=== PATIENT | male | born 1955 | race Caucasian/White ===

== ENCOUNTER 2017-05-15 20:32 | Inpatient (IN) | payer OTHER ==
--- NOTE | 2017-05-15 20:55 | EDPHY ---
H & P Time Seen by Provider: 05/15/17 20:51 HPI/ROS: CHIEF COMPLAINT: Right ankle fracture dislocation HISTORY OF PRESENT ILLNESS: 61-year-old male presents with a right ankle fracture dislocation. This evening he was running while intoxicated, tripped on a rock and fell. Immediate onset of severe pain and deformity in his right ankle. He was seen at a free-standing emergency department in [place] where he was diagnosed with a right ankle fracture dislocation. The dislocation was reduced and he was placed in a splint. Dr. Archer was consulted and the patient was sent to this emergency department for admission. The pain is mild to moderate and he denies numbness or weakness. He denies any additional injuries. He does admit to drinking a beer while en route to the hospital. Medical history includes coronary artery disease and two prior CVAs. REVIEW OF SYSTEMS: Constitutional: No weakness Eyes: No visual changes or eye pain ENT: No dental trauma Neck: No pain or injury Respiratory: No shortness of breath Cardiac: No chest pain Gastrointestinal: No abdominal pain, no vomiting Back: No pain or injury Genitourinary: No hematuria Musculoskeletal: +right ankle injury Skin: +right arm abrasion Neurological: No headache, no dizziness Past Medical/Surgical History: CAD with stenting, 3 prior MIs, CABG. Two prior CVAs. Social History: Smokes regularly. Drinks alcohol socially. . Smoking Status: Heavy smoker Physical Exam: General Appearance: Alert, talkative Head: Atraumatic Eyes: No conjunctival erythema, PERRLA, EOMI ENT, Mouth: No hemotympanum, no oral trauma, no bony tenderness Neck: Non-tender, full range of motion without pain Respiratory: No chest wall tenderness, lungs clear bilaterally Cardiovascular: Regular rate and rhythm Abdomen: Abdomen is soft and non tender Skin: No lacerations, superficial abrasion to the right forearm Back: No midline T/L/S tenderness Extremities: Right lower extremity-there is a posterior splint in place. Able to move all toes. Normal capillary refills of the toes. Neurological: A&Ox3, normal motor function, normal sensory exam, cranial nerves intact Psychiatric: Mood and affect normal Constitutional: Initial Vital Signs Temperature (C) 36.8 C 05/15/17 20:33 Heart Rate 80 05/15/17 20:33 Respiratory Rate 20 05/15/17 20:33 Blood Pressure 107/67 05/15/17 20:33 O2 Sat (%) 94 05/15/17 20:33 O2 Delivery Mode Room Air Allergies/Adverse Reactions: No Known Allergies Allergy (Verified 05/15/17 21:34) Home Medications: Medication Instructions Recorded Albuterol [Ventolin Hfa Inhaler] 2 puffs IH Q4H PRN 05/15/17 Aspirin [Aspirin 325 mg (*)] 325 mg PO HS 05/15/17 Budesonide/Formoterol 160/4.5 2 puffs IH BID 05/15/17 [Symbicort 160-4.5 Mcg Inh (*)] Irbesartan [Avapro 150 mg (*)] 150 mg PO DAILY 05/15/17 Metoprolol Succinate Xr [Toprol Xl 25 mg PO DAILY 05/15/17 50 mg (*)] Nitroglycerin [Nitrostat 0.4 mg 0.4 mg SL Q5M PRN 05/15/17 (*)] Medical Decision Making - Diagnostics Imaging Results: Imaging Impressions Chest X-Ray 05/15/17 21:21 Impression: No acute abnormality. Imaging: I viewed and interpreted images myself ED Course/Re-evaluation: 61-year-old male presents with right ankle dislocation and [facility] He has no additional significant injuries. He was evaluated at an urgent care clinic in [place] and brings x-ray discs with him. EKG, chest x-ray, and labs ordered in preparation for surgical admission. Plan for consultation with orthopedist. The patient was reminded to remain NPO throughout his emergency department stay. 2118: Dr. Archer, orthopedic surgeon, at bedside. CT scan of the right ankle ordered by Dr. Archer. 2119: Consultation with Dr. Sanford, hospitalist, who accepts admission. Differential Diagnosis: Differential diagnosis includes though it is not limited to open fracture, neurovascular compromise, intracranial hemorrhage, pneumothorax, hemothorax, intra-abdominal hemorrhage. - Data Points Laboratory Results: Laboratory Results 05/15/17 21:00 05/15/17 21:00 05/15/17 05/15/17 21:00 21:00 WBC 13.19 10^3/uL H 10^3/uL (3.80-9.50) RBC 4.93 10^6/uL 10^6/uL (4.40-6.38) Hgb 16.6 g/dL g/dL (13.7-17.5) Hct 48.2 % % (40.0-51.0) MCV 97.8 fL fL (81.5-99.8) MCH 33.7 pg pg (27.9-34.1) MCHC 34.4 g/dL g/dL (32.4-36.7) RDW 13.0 % % (11.5-15.2) Plt Count 227 10^3/uL 10^3/uL (150-400) MPV 10.6 fL fL (8.7-11.7) Neut % (Auto) 83.7 % H % (39.3-74.2) Lymph % (Auto) 9.3 % L % (15.0-45.0) Dukes % (Auto) 5.4 % % (4.5-13.0) Eos % (Auto) 0.8 % % (0.6-7.6) Baso % (Auto) 0.4 % % (0.3-1.7) Nucleat RBC Rel Count 0.0 % % (0.0-0.2) Absolute Neuts (auto) 11.05 10^3/uL H 10^3/uL (1.70-6.50) Absolute Lymphs (auto) 1.23 10^3/uL 10^3/uL (1.00-3.00) Absolute Monos (auto) 0.71 10^3/uL 10^3/uL (0.30-0.80) Absolute Eos (auto) 0.10 10^3/uL 10^3/uL (0.03-0.40) Absolute Basos (auto) 0.05 10^3/uL 10^3/uL (0.02-0.10) Absolute Nucleated RBC 0.00 10^3/uL 10^3/uL (0-0.01) Immature Gran % 0.4 % % (0.0-1.1) Immature Gran # 0.05 10^3/uL 10^3/uL (0.00-0.10) Sodium 135 mEq/L mEq/L (134-144) Potassium 4.1 mEq/L mEq/L (3.5-5.2) Chloride 101 mEq/L mEq/L (97-110) Carbon Dioxide 20 mEq/l L mEq/l (22-31) Anion Gap 14 mEq/L mEq/L (8-16) BUN 16 mg/dL mg/dL (7-23) Creatinine 1.1 mg/dL mg/dL (0.7-1.3) Estimated GFR > 60 Glucose 82 mg/dL mg/dL (70-100) Calcium 9.2 mg/dL mg/dL (8.5-10.4) Ethyl Alcohol 88 mg/dL H mg/dL (0-10) Medications Given: Discontinued Medications Hydromorphone HCl (Dilaudid) 0.2 - 0.4 mg IVP Q4HRS PRN PRN Reason: Pain, Severe Unable to Take PO Stop: 05/25/17 21:39 Last Admin: 05/16/17 05:51 Dose: 0.4 mg Departure - Departure Disposition: [facility] Inpatient Acute Clinical Impression: Fracture dislocation of ankle Qualifiers: Encounter type: initial encounter Fracture type: closed Laterality: right Qualified Code(s): S82.891A - Other fracture of right lower leg, initial encounter for closed fracture Condition: Fair Report Scribed for: Shellie Piedra Report Scribed by: Devika Barrios Date of Report: 05/15/17 Time of Report: 20:53 Physician Review and Approval Statement: 05/15/17 20:53 Portions of this note were transcribed by a medical social worker. I personally performed a history, physical exam, medical decision making, and confirmed accuracy of information the transcribed note.
[2017-05-15 21:37] LABS: % IMMATURE GRANULYOCYTES 0.4 % (0.0-1.1); ABSOLUTE IMMATURE GRANULOCYTES 0.05 10^3/uL (0.00-0.10); ADD DIFF? NO; ADD MORPH? NO; ADD SCAN? NO; ATYPICAL LYMPHOCYTE FLAG 0 (0-99); FRAGMENT RBC FLAG 0 (0-99); HEMATOCRIT 48.2 % (40.0-51.0); HEMOGLOBIN 16.6 g/dL (13.7-17.5); LEFT SHIFT FLG 0 (0-99); LIPEMIA HEMOLYSIS FLAG 90 (0-99); MEAN CELL HEMOGLOBIN 33.7 pg (27.9-34.1); MEAN CELL HEMOGLOBIN CONCENTR. 34.4 g/dL (32.4-36.7); MEAN CELL VOLUME 97.8 fL (81.5-99.8); MEAN PLATELET VOLUME 10.6 fL (8.7-11.7); PLATELET CLUMPS FLAG 0 (0-99); PLATELET COUNT 227 10^3/uL (150-400); RED BLOOD CELL COUNT 4.93 10^6/uL (4.40-6.38)
[2017-05-15] MEDS ORDERED: ONDANSETRON 4 MG/2 ML VIAL IVP PRN (21:40)
[2017-05-15] MEDS ORDERED: PROMETHAZINE HCL 25 MG/ML INJ IVP PRN (21:40)
[2017-05-15] MEDS ORDERED: ALBUTEROL 3 ML DEYVIAL IH PRN (21:40)
[2017-05-15] MEDS ORDERED: ACETAMINOPHEN 325 MG TAB PO PRN (21:40)
[2017-05-15] MEDS ORDERED: NICOTINE POLACRILEX 2 MG GUM B PRN (21:40)
[2017-05-15] MEDS ORDERED: ONDANSETRON DISINTEGRATING 4 MG TAB PO PRN (21:40)
[2017-05-15] MEDS ORDERED: ALBUTEROL 200 PUFFS/18 GM MDI IH PRN (21:42)
[2017-05-15 21:43] LABS: ANION GAP 14 mEq/L (8-16); CALCIUM 9.2 mg/dL (8.5-10.4); CARBON DIOXIDE 20 mEq/l (22-31); CHLORIDE 101 mEq/L (97-110); CREATININE 1.1 mg/dL (0.7-1.3); ETHANOL SERUM 88 mg/dL (0-10); GLOMERULAR FILTRATION RATE > 60; GLUCOSE 82 mg/dL (70-100); POTASSIUM 4.1 mEq/L (3.5-5.2); SODIUM 135 mEq/L (134-144)
--- NOTE | 2017-05-15 22:18 | GCON ---
[f rep st] CONSULTATION DATE OF CONSULTATION: 05/15/2017 CHIEF COMPLAINT: Right ankle fracture dislocation. HISTORY OF PRESENT ILLNESS: A 61-year-old male, who was drinking and hanging out with friends, took a misstep and fell and fractured his ankle. He was seen at [facility] emergency room wh ere his dislocation was reduced but he still had significant widening. I was contacted and elected to take care of the patient orthopedically. He was transferred to [facility]. He complains only of right ankle pain. Denies other injuries. PAST MEDICAL HISTORY: Coronary artery disease with 3 MIs, prior CABG, 2 stents, 2 prior CVAs. SURGICAL HISTORY: Hip replacements. SOCIAL HISTORY: Smokes regularly, drinks regularly, uses marijuana. ALLERGIES: No known drug allergies. MEDICATIONS: Please see inpatient medication list. FAMILY HISTORY: Noncontributory. REVIEW OF SYSTEMS: Full Review of Systems is performed, is otherwise negative other than above. PHYSICAL EXAM: GENERAL: He is alert, oriented, and appropriate. Does not appear in any acute dist ress. He does not appear intoxicated at this time. HEENT: His head is atraumatic, normocephalic. His eyes are equal. His mouth has moist mucous membranes. NECK: Supple. CHEST: Symmetric chest rise. CARDIAC: Regular rate and rhythm. ABDOMEN: Soft. EXTREMITIES: His right lower extremity is in a splint. He can flex and extend his toes. His knee and hip are nonpainful. His left lower extremity shows good range of motion, no pain. His bilateral upper extremities show good range of motion. Full strength, no pain. X-rays showed an ankle fracture with incomplete reduction, medial subluxation. ASSESSMENT: Right ankle fracture with significant displacement. PLAN: He was being admitted and evaluated by the hospitalist service. I counseled him on the risks and benefits of an ORIF of this given his widening, and will perform this tomorrow if he is able to be cleared medically. I will get a CT scan to further characterize the fracture given the dislocat ion. It is in a splint, he will elevate and ice this. He will remain n.p.o. We discussed risks an d benefits of operative intervention including nonunion, malunion, nerve injury, infection, continue d pain, and he elected to proceed. Informed consent obtained. All questions were answered. /[id number]/MODL
--- NOTE | 2017-05-15 22:23 | GHP ---
[f rep st] HISTORY AND PHYSICAL DATE OF ADMISSION: 05/15/2017 CHIEF COMPLAINT: Right ankle pain. HISTORY: This is a 61-year-old man with past medical history of coronary artery disease, as well as COPD, who presents after a mechanical fall with acute right ankle pain. The patient notes that he was "chasing women and drinking" when he slipped and fell on a rock. He had some abrasions to his r ight elbow and also significant pain to his right ankle. He otherwise denies any complaints and sta bernardino that up until he fell, he was in his usual state of health and feeling quite well. He has not h ad chest pain in many, many years. He does drink heavily on the weekends and notes that he was drin navarro 5 cans of beer earlier in the day and then had another beer on his way over to the hospital. Manav wheatley denies ever having issues with withdrawal. PAST MEDICAL HISTORY: 1. Coronary artery disease, status post RI x3, status post stents and CABG. 2. COPD relatively noncompliant with medications. 3. History of 2 CVAs. SURGICAL HISTORY: CABG and bilateral total hip arthroplasty. FAMILY HISTORY: This was reviewed and noncontributory. SOCIAL HISTORY: The patient lives independently. He drinks alcohol heavily on the weekends but sta bernardino he does not drink during the week. He smokes 1 pack per day and has approximately a 40-pack-yea r smoking history. He is . REVIEW OF SYSTEMS: 10-point review of systems obtained negative except as per HPI. MEDICATIONS: 1. Irbesartan. 2. Nitroglycerin. 3. Symbicort. 4. Albuterol. 5. Metoprolol. 6. Aspirin. ALLERGIES: No known drug allergies. PHYSICAL EXAMINATION: VITAL SIGNS: BP 107/67, heart rate 80, respiratory rate 18, O2 sats 94% on r oom air. Temperature is 36.8. GENERAL APPEARANCE: This is a well-developed/well-nourished man. Manav wheatley is awake and alert. He is in no acute distress. EYES: Anicteric. HENT: Oropharynx clear. CARD IOVASCULAR: Regular rate and rhythm, no MRG. PULMONARY: Decreased breath sounds with scattered ex piratory wheeze. Normal work of breathing. ABDOMEN: Soft, nontender, nondistended. EXTREMITIES: Right lower extremity is in a dressing otherwise no clubbing, cyanosis, or edema. SKIN: Warm, dry, well perfused. NEURO/PSYCHIATRIC: Oriented, appropriate, pleasant. CLINICAL DATA: Labs reviewed. Significant for white blood cell count of 13.19. Chemistry is unrem arkable. Blood alcohol level of 88. Chest x-ray, personally reviewed and interpreted, shows no acute abnormalities. ASSESSMENT AND PLAN: This is a 61-year-old man past medical history of coronary artery disease and chronic obstructive pulmonary disease who presents with a right ankle fracture and dislocation. 1. Right ankle fracture/dislocation. These films are being loaded into our system though I have no t yet had a chance to personally review them. I did discuss the case with Dr. Archer who believes s urgical intervention will be required in the morning. He has ordered a CT of the lower extremity fo r further evaluation. He will be made n.p.o. after midnight. He is currently not in significant am ounts of pain but did require IV opiates in the emergency department for pain control. These will b e continued on an as-needed basis. 2. Coronary artery disease. Sounds as if his surgery and stenting have all been quite remote and manav wheatley has not had any angina or other cardiac symptoms since then. He is quite active and is a low card iac risk for an urgent surgical intervention. He will be continued on his usual medications other t soto aspirin which will be held for the time being. He is also on metoprolol and irbesartan. 3. Chronic obstructive pulmonary disease. Seems as if this is generally fairly poorly controlled b y this man. He states he does not like to take his inhalers as he feels that they are "addictive." He does have a mild expiratory wheeze and decreased breath sounds on exam. Will start scheduled Du oNeb and albuterol p.r.n. in anticipation of surgery in the morning. He is not hypoxic, however, an d does not have evidence of acute exacerbation at this point. 4. History of cerebrovascular accident. No residual symptoms. 5. Alcohol abuse. The patient has what sounds like binge drinking behaviors on the weekend. He henderson s had at least 6 or 7 beers this afternoon. He does not appear intoxicated and his blood alcohol le joceline is 88. He denies ever having withdrawal. Will monitor closely but will not start CIWA at this point. 6. Disposition: Inpatient status. Suspect he will need greater than 48 hours stay for evaluation and management of above. 7. The patient is new to my care. Old records reviewed, summarized as per HPI and past medical his tory. Care plan reviewed with Dr. Archer present at bedside. /[id number]/MODL
[2017-05-15] MEDS: NICOTINE 21 MG/24 HR PATCH TD SCH (22:49)
[2017-05-15] MEDS: NS 1,000 ML IV SCH (22:49)
[2017-05-15] MEDS: oxyCODONE IR 5 MG TAB PO PRN (23:00)
[2017-05-16] MEDS: HYDROmorphONE/DILAUDID 1 MG/ML SYR IVP PRN ×2 (02:56→05:51)
[2017-05-16] MEDS: oxyCODONE IR 5 MG TAB PO PRN ×3 (05:50→22:10)
[2017-05-16] MEDS: IPRATROPIUM/ALBUTEROL 3 ML DEYVIAL IH SCH ×4 (06:22→23:05)
[2017-05-16] MEDS ORDERED: BUPIVACAINE 0.5% 30 ML SDV ONE (07:50)
[2017-05-16] MEDS ORDERED: HYDROmorphONE/DILAUDID 1 MG/ML SYR IVP PRN ×2 (07:50→14:12)
[2017-05-16] MEDS: NICOTINE 21 MG/24 HR PATCH TD SCH (08:04)
[2017-05-16] MEDS: NS 1,000 ML IV SCH (08:15)
[2017-05-16] MEDS: IRBESARTAN 150 MG TAB PO SCH (08:17)
[2017-05-16] MEDS: BUDESONIDE/FORMOTEROL 160/4.5 60 PUFFS/MDI IH SCH ×2 (08:20→08:22)
[2017-05-16] MEDS: METOPROLOL SUCCINATE XR 25 MG TAB PO SCH (08:21)
[2017-05-16] MEDS ORDERED: ceFAZolin 2 GM/DEXTROSE 100 ML IV ONE (09:01)
--- NOTE | 2017-05-16 09:03 | SOAPPROG ---
PRAVEEN Progress Note Assessment/Plan: Assessment: R ankle fracture Plan: ORIF of right ankle and deltoid repair NPO informed consent obtained 05/16/17 09:02 Subjective: pain in ankle Objective: Vital Signs Temp Pulse Resp BP Pulse Ox 36.4 C 68 16 106/71 92 05/16/17 08:00 05/16/17 03:46 05/16/17 08:00 05/16/17 08:00 05/16/17 08:00 05/15/17 05/16/17 05/17/17 05:59 05:59 05:59 Intake Total 1690 0 Output Total 1700 525 Balance -10 -525 in splint ICD10 Worksheet Patient Problems: Problems Problem Status Onset Fracture dislocation of ankle Acute
[2017-05-16] MEDS ORDERED: HYDROmorphONE/DILAUDID 1 MG/ML SYR IVP ONE (10:33)
[2017-05-16] MEDS ORDERED: CEFAZOLIN 2 GM/DEXTROSE/100 ML BAG IV ONE (11:56)
--- NOTE | 2017-05-16 12:35 | PDANEPAE ---
ANE History of Present Illness 61 yo with fx R ankle ANE Past Medical History - Cardiovascular History Hx Hypertension: Yes Hx Coronary Artery / Peripheral Vascular Disease: Yes - Pulmonary History Hx COPD: Yes Hx Oxygen in Use at Home: No - Endocrine History Hx Diabetes: No ANE Review of Systems - Exercise capacity METS (RN): 4 METS - Systems Respiratory: Reports: no symptoms ANE Patient History - Allergies Allergies/Adverse Reactions: No Known Allergies Allergy (Verified 05/15/17 21:34) - Home Medications Home Medications: Albuterol [Ventolin Hfa Inhaler] 2 puffs IH Q4H PRN 05/15/17 [Last Taken Unknown ] Aspirin [Aspirin 325 mg (*)] 325 mg PO HS 05/15/17 [Last Taken 05/14/17] Budesonide/Formoterol 160/4.5 [Symbicort 160-4.5 Mcg Inh (*)] 2 puffs IH BID [Last Taken 04/15/17] Irbesartan [Avapro 150 mg (*)] 150 mg PO DAILY 05/15/17 [Last Taken 05/15/17] Metoprolol Succinate Xr [Toprol Xl 50 mg (*)] 25 mg PO DAILY 05/15/17 [Last Taken 05/15/17] Nitroglycerin [Nitrostat 0.4 mg (*)] 0.4 mg SL Q5M PRN 05/15/17 [Last Taken Unknown] - NPO status NPO Since - Liquids (Date): 05/15/17 NPO Since - Liquids (Time): 20:30 NPO Since - Solids (Date): 05/15/17 NPO Since - Solids (Time): 15:00 - Smoking Hx Smoking Status: Heavy smoker - Alcohol Use Alcohol Use: Heavy ANE Labs/Vital Signs - Labs Result Diagrams: 05/15/17 21:00 05/15/17 21:00 - Vital Signs Blood Pressure: 148/80 Heart Rate: 80 Respiratory Rate: 16 O2 Sat (%): 94 Height: 170.18 cm Weight: 79.37 kg ANE Physical Exam - Airway Neck exam: FROM Mallampati Score: Class 2 - Pulmonary Pulmonary: no respiratory distress, clear to auscultation - Cardiovascular Cardiovascular: regular rate and rhythym - ASA Status ASA Status: III ANE Anesthesia Plan Anesthesia Plan: general endotracheal anesthesia
[2017-05-16] MEDS ORDERED: MIDAZOLAM 2 MG/2 ML VIAL IVP ONE (12:36)
[2017-05-16] MEDS ORDERED: MIDAZOLAM 2 MG/2 ML VIAL ONE (12:38)
[2017-05-16] MEDS ORDERED: PROPOFOL 200 MG/20 ML VIAL ONE ×2 (13:09→14:19)
--- NOTE | 2017-05-16 13:17 | HOSPPROG ---
Hospitalist Progress Note Assessment/Plan: 61y male with fall and ankle pain. This is my first encounter, chart reviewed. #Ankle fx to OR today #Pain cont supportive meds #Hx CAD stable, no CP #COPD noncompliant cont nebs #Hx CVA stable #Hx ETOH binge drinking stable #Dispo unclear, to OR today PT/OT eval Subjective: Having some pain. No other issues. Objective: Vital Signs Temp Pulse Resp BP Pulse Ox 37.0 C 80 16 148/80 H 94 05/16/17 11:49 05/16/17 12:36 05/16/17 12:36 05/16/17 12:36 05/16/17 12:36 05/15/17 05/16/17 05/17/17 05:59 05:59 05:59 Intake Total 1690 0 Output Total 1700 875 Balance -10 -875 - Physical Exam Constitutional: no apparent distress, appears nourished, uncomfortable Eyes: PERRL, anicteric sclera, EOMI Ears, Nose, Mouth, Throat: moist mucous membranes, hearing normal, ears appear normal Cardiovascular: No JVD, No tachycardia, No edema Respiratory: no respiratory distress, reduced air movement, expiratory wheeze Gastrointestinal: No tenderness, No ascites, No guarding Skin: warm, normal color, No erythema Musculoskeletal: joint tenderness, pain with ROM, generalized weakness Neurologic: AAOx3 Psychiatric: interacting appropriately, not anxious, not encephalopathic, thought process linear ICD10 Worksheet Patient Problems: Problems Problem Status Onset Fracture dislocation of ankle Acute
[2017-05-16] MEDS ORDERED: PROMETHAZINE HCL 25 MG/ML INJ IVP PRN (14:12)
[2017-05-16] MEDS ORDERED: NALOXONE HCL 0.4 MG/ML INJ IVP PRN (14:12)
[2017-05-16] MEDS ORDERED: ONDANSETRON 4 MG/2 ML VIAL IVP PRN (14:12)
[2017-05-16] MEDS ORDERED: fentaNYL 100 MCG/2 ML INJ IVP PRN (14:12)
[2017-05-16] MEDS ORDERED: ALBUTEROL 3 ML DEYVIAL IH PRN (14:12)
--- NOTE | 2017-05-16 14:30 | POSTOPPROG ---
Post Op Note Date of Operation: 05/16/17 Surgeon: José Miguel Archer Out Patient Therapist: natalie Anesthesiologist: warm Anesthesia: GET(General Endotracheal) Pre-op Diagnosis: right ankle fx dislocation Post-op Diagnosis: same Indication: above Procedure: orif right ankle Inf/Abcess present in the surg proc area at time of surgery?: No EBL: Minimal
--- NOTE | 2017-05-16 14:39 | POSTANESTH ---
Post Anesthetic Evaluation Cardiovascular Status: Normal, Stable Respiratory Status: Normal, Stable Level of Consciousness/Mental Status: Can Participate in Eval, Mildly Sleepy, Arousable Pain Control: Adequate, Prn Tx Ordered Nausea/Vomiting Control: Adequate, Prn Tx Ordered Complications Possibly Related to Anesthesia: None Noted
--- NOTE | 2017-05-16 15:41 | GOP ---
[f rep st] OPERATIVE REPORT DATE OF OPERATION: 05/16/2017 SURGEON: José Miguel Archer MD [employer]: Endy Greene [employer]. ANESTHESIA: General with popliteal and saphenous block. PREOPERATIVE DIAGNOSIS: 1. Right lateral malleolar ankle fracture/dislocation. 2. Posterior malleolar fracture. 3. Deltoid injury. POSTOPERATIVE DIAGNOSIS: 1. Right lateral malleolar ankle fracture/dislocation. 2. Posterior malleolar fracture. 3. Deltoid injury. PROCEDURE PERFORMED: 1. Open reduction and internal fixation of right lateral malleolus fracture. 2. Open repair of right deltoid ligament. 3. Closed treatment with manipulation of posterior malleolus fragment. FINDINGS: SPECIMENS: None. CONDITION: Stable. ESTIMATED BLOOD LOSS: 5 mL. INDICATIONS: This is a male who has injured his ankle and had an ankle fracture/dislocation. This was reduced by an outside emergency room. However, there was still significant widening of the mort ise. He was transferred to [facility] and evaluated. He was taken to the operating room when he is medically cleared and stable due to the subluxation of the talus. We discussed risks and benefits of operative intervention, including nonunion, malunion, continued i nstability, need for syndesmotic fixation, need for deltoid repair, nerve injury, need for further s urgery, stiffness. He wished to proceed. Informed consent was obtained. All questions were obtain ed. DESCRIPTION OF PROCEDURE: He was marked preoperatively. He was taken to the operative suite. Anes thesia was induced. Blocks were administered per Anesthesia. He was given 2 g of Ancef. He was st erilely prepped and draped in the usual fashion. A time-out was performed verifying the site, side, and location. All were in agreement as a team. The procedure was begun with Esmarch and inflation of the tourniquet. I made an incision over the lateral fibula and dissected down to the fracture site, debriding this a nd protecting neurovascular structures. I then opened up the medial side of the ankle, protecting t he saphenous nerve and vein. He had significant gapping of the medial clear space and the posterior tibial tendon was stuck in this. I removed this out of the way posteriorly, debrided this area and then was able to reduce this. He had a complete tear of his deltoid ligament, partial avulsion, pa rtial midsubstance tear. I turned my attention back to the lateral side. I was able to reduce the bone with manual manipulat ion and hold this with clamps. I placed a lag screw in this, which was later removed, and K-wire. I placed a plate on this, brought this to the bone with a cortical screw, placed distal locking scre ws in the proximal and cortical screws to achieve good fixation. I removed all the instrumentation. His fracture appeared anatomically reduced. Hardware was in goo d position. His mortise was restored. He did not want a stress x-ray. I made the decision to repair the deltoid ligament, given the severe nature of this injury and rotat ional control issues. Additionally, his posterior malleolus fragment had reduced as well. I then p ut 3-0 Bio-SutureTak anchor in the medial malleolus and over sewed the deltoid to this. I repaired the midsubstance of the deltoid more posteriorly. The wounds were thoroughly irrigated and closed w ith 0 Vicryl, 2-0 Vicryl and 3-0 Monocryl, and Dermabond. He was placed in a sterile dressing and s plint. He was taken to the PACU in stable condition. COMPLICATIONS: None. DRAINS: None. /[id number]/MODL
[2017-05-16 22:46] VITALS: RESP 16
[2017-05-17] MEDS: oxyCODONE IR 5 MG TAB PO PRN (07:12)
--- NOTE | 2017-05-17 08:08 | SOAPPROG ---
PRAVEEN Progress Note Assessment/Plan: Assessment: R ankle fracture Plan: s/p ORIF of right ankle and deltoid repair nwb RLE stay in splint d/c from my standpoint they have my card to make f/u appt in 1.5 weeks Subjective: pain in ankle Objective: Vital Signs Temp Pulse Resp BP Pulse Ox 37.1 C 78 16 130/81 H 96 05/16/17 22:45 05/16/17 22:45 05/16/17 22:45 05/16/17 22:45 05/16/17 22:45 05/16/17 05/17/17 05/18/17 05:59 05:59 05:59 Intake Total 1690 3200 Output Total 1700 1841 Balance -10 725 moving toes ICD10 Worksheet Patient Problems: Problems Problem Status Onset Fracture dislocation of ankle Acute
--- NOTE | 2017-05-17 08:51 | HOSPPROG ---
Hospitalist Progress Note Assessment/Plan: Patient is a 61 y/o male who slipped and fell on a rock and came to the ER with right ankle pain. This is my first encounter, chart reviewed. *right malleolar ankle fx w dislocation s/p ORIF NWB to rle stay in splint f/u with ortho is 1.5 weeks *Pain cont supportive meds #Hx CAD stable, no CP hx of stents and CABG #COPD noncompliant cont nebs #Hx CVA stable #Hx ETOH binge drinking #Dispo: PT and OT seeing today/ patient is very anxious for dc Subjective: Duglas is anxious to be discharged/ not c/o pain at this time. Objective: Vital Signs Temp Pulse Resp BP Pulse Ox 37.1 C 78 16 130/81 H 96 05/16/17 22:45 05/16/17 22:45 05/16/17 22:45 05/16/17 22:45 05/16/17 22:45 05/16/17 05/17/17 05/18/17 05:59 05:59 05:59 Intake Total 1690 3200 Output Total 1700 2475 Balance -10 725 - Physical Exam Constitutional: no apparent distress, appears nourished Eyes: PERRL Ears, Nose, Mouth, Throat: hearing normal Cardiovascular: regular rate and rhythym, tachycardia Respiratory: no respiratory distress Gastrointestinal: normoactive bowel sounds Skin: warm Musculoskeletal: full muscle strength, other (able to use crutches to ambulate) Neurologic: AAOx3 Psychiatric: interacting appropriately ICD10 Worksheet Patient Problems: Problems Problem Status Onset Fracture dislocation of ankle Acute
[2017-05-17 09:10] VITALS: BP 117/74; TEMP 97.6; O2SAT 90
[2017-05-17] MEDS: METOPROLOL SUCCINATE XR 25 MG TAB PO SCH (09:20)
[2017-05-17 09:22] VITALS: PULSE 91
[2017-05-17] MEDS: IRBESARTAN 150 MG TAB PO SCH (09:24)
[2017-05-17] MEDS: BUDESONIDE/FORMOTEROL 160/4.5 60 PUFFS/MDI IH SCH (09:25)
[2017-05-17] MEDS: NICOTINE 21 MG/24 HR PATCH TD SCH (09:25)
[2017-05-17] MEDS ORDERED: IBUPROFEN 200 MG TAB PO ONE (09:45)
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
== END 2017-05-17 10:21 | disposition home or self-care (01) | DRG 494 ==
LOC: F3N 22:44
PROVIDERS: ADMIT Internal Medicine; ATTEND Internal Medicine
PROC: 0SSF04Z Reposition Right Ankle Joint with Internal Fixation Device, Open Approach (ICD-10-PCS; principal; 2017-05-16 11:15)
PROC: 0MQQ0ZZ Repair Right Ankle Bursa and Ligament, Open Approach (ICD-10-PCS; principal; 2017-05-16 11:15)
DX: S82.61XA Displaced fracture of lateral malleolus of right fibula, initial encounter for closed fracture (principal); S93.421A Sprain of deltoid ligament of right ankle, initial encounter; S50.311A Abrasion of right elbow, initial encounter; J44.9 Chronic obstructive pulmonary disease, unspecified; I25.10 Atherosclerotic heart disease of native coronary artery without angina pectoris; F10.10 Alcohol abuse, uncomplicated; F17.210 Nicotine dependence, cigarettes, uncomplicated; I25.2 Old myocardial infarction; W01.0XXA Fall on same level from slipping, tripping and stumbling without subsequent striking against object, initial encounter; Z86.73 Personal history of transient ischemic attack (TIA), and cerebral infarction without residual deficits; Z95.1 Presence of aortocoronary bypass graft
CPT/HCPCS: 97161-GP; C1713; G0480; G8978-GP-CJ; G8979-GP-CJ; G8980-GP-CJ; J0690; J1170; J2250; J2704

== ENCOUNTER 2018-05-04 19:05 | Emergency (ER) | payer OTHER ==
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
[2018-05-04] MEDS ORDERED: TDAP ADULT 0.5 ML INJ (BOOSTRIX) IM ONE (20:23)
[2018-05-04 20:57] VITALS: BP 114/75
== END 2018-05-04 20:52 | disposition home or self-care (01) ==
LOC: EDUNIT# → FIMAGING 19:05
DX: S80.02XA Contusion of left knee, initial encounter (principal); S83.92XA Sprain of unspecified site of left knee, initial encounter; I25.2 Old myocardial infarction; J44.9 Chronic obstructive pulmonary disease, unspecified; F17.200 Nicotine dependence, unspecified, uncomplicated; Z23 Encounter for immunization; Z95.5 Presence of coronary angioplasty implant and graft; Z79.82 Long term (current) use of aspirin; V23.0XXA Motorcycle driver injured in collision with car, pick-up truck or van in nontraffic accident, initial encounter; Y92.014 Private driveway to single-family (private) house as the place of occurrence of the external cause; Y99.8 Other external cause status; Y93.89 Activity, other specified
CPT/HCPCS: L1830

== ENCOUNTER 2018-08-09 11:09 | Observation (INO) | payer OTHER ==
[~2018-08-09 11:09] MED LIST: ROPIVACAINE 0.2% 80 MG, EPINEPHrine 0.2 MG, KETOROLAC TROMETHAMINE 30 MG, morphINE 10 M... IU ONE; TRANEXAMIC ACID 1,000 MG in NS 100 ML IV ONE
[2018-08-09] MEDS ORDERED: ceFAZolin 1 GM/5 ML SYR ONE ×2 (11:41→11:49)
[2018-08-09] MEDS ORDERED: DEXAMETHASONE 4 MG/ML VIAL IVP ONE (11:48)
[2018-08-09] MEDS ORDERED: ceFAZolin 2 GM/DEXTROSE 100 ML IV ONE (11:48)
[2018-08-09] MEDS ORDERED: FAMOTIDINE 20 MG TAB PO ONE (11:48)
[2018-08-09] MEDS ORDERED: ACETAMINOPHEN 325 MG TAB PO ONE (11:48)
[2018-08-09] MEDS ORDERED: LIDOCAINE 1% 2 ML INJ ID PRN (12:10)
[2018-08-09] MEDS ORDERED: LR 1,000 ML IV ONE (12:10)
[2018-08-09] MEDS ORDERED: MIDAZOLAM 2 MG/2 ML VIAL IVP ONE (12:21)
--- NOTE | 2018-08-09 12:21 | PDANEPAE ---
ANE History of Present Illness TKA ANE Past Medical History - Cardiovascular History Hx Hypertension: Yes Hx Arrhythmias: No Hx Chest Pain: No Hx Coronary Artery / Peripheral Vascular Disease: Yes Hx CHF / Valvular Disease: No Hx Palpitations: No Cardiovascular History Comment: OK X3. GABG. STENTS - Pulmonary History Hx COPD: Yes Hx Asthma/Reactive Airway Disease: No Hx Recent Upper Respiratory Infection: No Hx Oxygen in Use at Home: No Hx Sleep Apnea: No Sleep Apnea Screening Result - Last Documented: Negative Pulmonary History Comment: BRING INHALER DOS - Neurologic History Hx Cerebrovascular Accident: No Hx Seizures: No Hx Dementia: No - Endocrine History Hx Diabetes: No - Renal History Hx Renal Disorders: No - Liver History Hx Hepatic Disorders: No - Neurological & Psychiatric Hx Hx Neurological and Psychiatric Disorders: No - Cancer History Hx Cancer: No - Congenital Disorder History Hx Congenital Disorders: No - GI History Hx Gastrointestinal Disorders: No - Other Health History Other Health History: FULL DENTURES. EASY BRUISING - Chronic Pain History Chronic Pain: Yes (LT KNEE) - Surgical History Prior Surgeries: BILATERAL TOTAL HIPS. GABGX4 2000. RT ANKLE ORIF 04/2018 ANE Review of Systems Review of systems is: negative Review of Systems: - Exercise capacity METS (RN): 3 METS ANE Patient History - Allergies Allergies/Adverse Reactions: acetaminophen Allergy (Verified 08/09/18 12:26) LOWERS WBC'S - Home Medications Home medications: home medication list seen and reviewed Home Medications: Albuterol [Ventolin Hfa Inhaler] 2 puffs IH Q4H PRN 05/15/17 [Last Taken Unknown ] Aspirin [Aspirin 325 mg (*)] 325 mg PO HS 05/15/17 [Last Taken 05/14/17] Irbesartan [Avapro 150 mg (*)] 150 mg PO DAILY 05/15/17 [Last Taken 05/15/17] Metoprolol Succinate Xr [Toprol Xl 50 mg (*)] 25 mg PO DAILY 05/15/17 [Last Taken 05/15/17] Nitroglycerin [Nitrostat 0.4 mg (*)] 0.4 mg SL Q5M PRN 05/15/17 [Last Taken Unknown] - NPO status NPO Status: no food or drink >8 hours NPO Since - Liquids (Date): 08/08/18 NPO Since - Liquids (Time): 22:00 NPO Since - Solids (Date): 08/08/18 NPO Since - Solids (Time): 22:00 - Anes Hx Anes Hx: no prior problems - Smoking Hx Smoking Status: Heavy smoker - Family Anes Hx Family Anes Hx: none ANE Labs/Vital Signs - Vital Signs Vital Signs: reviewed preoperatively; see RN documention for details Blood Pressure: 127/92 Heart Rate: 73 Respiratory Rate: 18 O2 Sat (%): 92 Height: 170.18 cm Weight: 83.007 kg ANE Physical Exam - Airway Neck exam: FROM Mallampati Score: Class 2 Mouth exam: dentures - Pulmonary Pulmonary: no respiratory distress - Cardiovascular Cardiovascular: regular rate and rhythym - ASA Status ASA Status: III ANE Anesthesia Plan Anesthesia Plan: spinal Regional Anesthesia: adductor canal FNB, POPC/PSR
--- NOTE | 2018-08-09 13:00 | PDHPUP ---
History & Physical Update H&P update statement: This history and physical update is based on an assessment of the patient which was completed after admission or registration (within 24 hours), but prior to the surgery/procedure. H&P update: H&P reviewed & patient examined, no change in patient's condition since H&P completed H&P changes: none
[2018-08-09] MEDS ORDERED: PROPOFOL/EMULSION 500 MG/50 ML BOTTLE IV ONE (13:15)
[2018-08-09] MEDS ORDERED: LIDOCAINE 2% 100 MG/5 ML SYR ONE (13:15)
[2018-08-09] MEDS: ceFAZolin 1 GM/5 ML SYR ONE ×2 (14:02→14:57)
[2018-08-09] MEDS ORDERED: PROPOFOL 200 MG/20 ML VIAL ONE ×2 (14:41→15:12)
[2018-08-09] MEDS ORDERED: MEPERIDINE 25 MG/0.5 ML AMP IVP PRN (15:26)
[2018-08-09] MEDS ORDERED: fentaNYL 100 MCG/2 ML INJ IVP PRN (15:26)
[2018-08-09] MEDS ORDERED: DEXAMETHASONE 4 MG/ML VIAL IVP PRN (15:26)
[2018-08-09] MEDS ORDERED: PROMETHAZINE HCL 25 MG/ML INJ IVP PRN (15:26)
[2018-08-09] MEDS ORDERED: HYDROmorphONE/DILAUDID 1 MG/ML INJ IVP PRN (15:26)
[2018-08-09] MEDS ORDERED: ALBUTEROL 3 ML DEYVIAL IH PRN (15:26)
[2018-08-09] MEDS ORDERED: ONDANSETRON 4 MG/2 ML VIAL IVP PRN ×2 (15:26→15:57)
[2018-08-09] MEDS ORDERED: oxyCODONE IR 5 MG TAB PO PRN (15:26)
[2018-08-09] MEDS ORDERED: NALOXONE HCL 0.4 MG/ML INJ IVP PRN (15:26)
[2018-08-09] MEDS ORDERED: LABETALOL HCL 5 MG/ML 20 ML MDV IVP PRN (15:26)
[2018-08-09] MEDS ORDERED: ROPIVACAINE HCL 150 MG/30 ML INJ ONE (15:30)
[2018-08-09] MEDS ORDERED: MAGNESIUM HYDROXIDE 30 ML UDCUP PO PRN (15:57)
[2018-08-09] MEDS ORDERED: ONDANSETRON DISINTEGRATING 4 MG TAB PO PRN (15:57)
[2018-08-09] MEDS ORDERED: diphenhydrAMINE 25 MG CAP PO PRN (15:57)
[2018-08-09] MEDS ORDERED: POLYETHYLENE GLYCOL 3350 17 GM PKT PO PRN (15:57)
[2018-08-09] MEDS ORDERED: LACTULOSE 20 GM/30 ML UDCUP PO PRN (15:57)
[2018-08-09] MEDS ORDERED: DIPHENOXYLATE/ATROPINE LOMOTIL 1 TAB PO PRN (15:57)
[2018-08-09] MEDS ORDERED: TEMAZEPAM 15 MG CAP PO PRN (15:57)
[2018-08-09] MEDS ORDERED: BISACODYL 10 MG SUPP PR PRN (15:57)
[2018-08-09] MEDS ORDERED: NS 1,000 ML IV SCH (16:00)
[2018-08-09] MEDS ORDERED: NITROGLYCERIN 0.4 MG BTL SL PRN (16:06)
--- NOTE | 2018-08-09 16:11 | POSTOPPROG ---
Post Op Note Date of Operation: 08/09/18 Surgeon: Hyun Adams [employer] Supervisor: Manjula Coyne PA-C Anesthesia: Epidural Pre-op Diagnosis: Left Knee osteoarthritis Post-op Diagnosis: Left knee osteoarthritis Procedure: Left total knee arthroplasty Inf/Abcess present in the surg proc area at time of surgery?: No Depth: Deep Incisional (Fascial) EBL: 50-100 Complications: None Drains: Barry Smith
--- NOTE | 2018-08-09 16:17 | SOAPPROG ---
PRAVEEN Progress Note Assessment/Plan: Assessment/Plan: Left knee osteoarthritis S/P Left total knee arthroplasty with Dr. Adams 08/08/18 -Begin PT/OT -Pain management, encourage oral pain meds -Continue Ice -Continue SCD's for mechanical VTE prophylaxis -Continue Devin hose on right lower leg for mechanical prophylaxis -Pharmacy to dose warfarin for VTE chemoprophylaxis -WBAT LLE -Continue Cefazolin 2 gm every 8 hours, 24 hours total. -Appreciate Hospitalist consult for pts. co-existing conditions-significant CAD with h/o CABG in 2000, coronary stents last placed in 2002, h/o 3 NM's in the past, none recently. Also ongoing HTN, hyperlipidemia. Subjective/Objective: Pt. resting comfortably in recovery, conversing and asking /answering questions appropriately. 08/09/18 16:11 Objective: Vital Signs Temp Pulse Resp BP Pulse Ox 36.3 C 73 14 117/80 94 08/09/18 15:55 08/09/18 12:31 08/09/18 16:00 08/09/18 16:00 08/09/18 16:00 ICD10 Worksheet Patient Problems: Problems Problem Status Onset Fracture dislocation of ankle Acute
--- NOTE | 2018-08-09 16:38 | GHP ---
DATE OF ADMISSION: 08/09/2018 PREOPERATIVE DIAGNOSIS: Severe osteoarthritis of the left knee. POSTOPERATIVE DIAGNOSIS: Severe osteoarthritis of the left knee. PROCEDURE: Left total knee arthroplasty. CLINICAL ENGINEERING DIRECTOR: Manjula Coyne PA-C. ANESTHESIA: Spinal. The use of a surgical instrument repair specialist was required from retraction and wound exposure. INDICATIONS FOR PROCEDURE: This is a 62-year-old male with symptoms in his knee secondary to the abo ve diagnosis, failing nonoperative treatment, being admitted for surgical care. We have gone over ri sks, benefits and limitations of the procedure preoperatively. IMPLANTS UTILIZED: 1. Kan and Nephew 32 mm Ny II resurfacing patellar component. 2. Kan and Nephew size 5 left cruciate retaining lesion Oxinium femoral component. 3. Kan and Nephew size 5 Ny II left nonporous tibial base plate. 4. Kan and Nephew size 5, 9 mm Legion CR XLPE, high-flexion articular insert. DESCRIPTION OF PROCEDURE: After an adequate spinal anesthetic was obtained and IV antibiotics were a dministered, the patient's left lower extremity was prepped and draped in the usual sterile fashion. The limb was exsanguinated with the Esmarch and the tourniquet elevated to 300 mmHg pressure. A donna gitudinal midline incision was placed over the left knee. Dissection was carried down through the hdz bcutaneous tissues. Hemostasis was obtained using electrocautery. A medial arthrotomy was performed . The patella was dislocated laterally and the joint inspected. There was severe [id number] osteo arthritis involving the lateral compartment with moderate disease in the medial and femoral compartme nts. The medial and lateral meniscal remnants were excised as was the ACL. Osteophytes were removed . The intramedullary canal of the distal femur was entered. The intramedullary distal femoral cutti ng gig was now applied and 9 mm of distal femur was resected in a 5 degree valgus alignment. The fem ur was sized to a size 5 component. The anterior/posterior gig was applied in 3 degrees of external rotation commensurate with the transepicondylar axis. The anterior, posterior and chamfer cuts were preformed in routine fashion. The intramedullary tibial guide was applied and approximately 9 mm of the proximal tibia was resected perpendicular to the long axis of the tibia with 3 degrees of posteri or slope preserving the posterior cruciate ligament. A trial reduction revealed persistent tightness in extension and flexion, therefore, an additional 2 to 3 mm was resected and at this point with the size 5 femoral component, size 5 tibial tray and a 9 mm insert, excellent extension and flexion was achieved with excellent stability through a full range of motion. The tibial tray rotation was marke d, the patella was measured and approximately 8 mm resected. This was size to a 32 component and the patellar lug holes were drilled and the trial reduction with the patellar component revealed normal tracking. The femoral lug holes were punched. The proximal tibia was prepared with a keel punch in routine fashion. The first batch of cement was mixed. The proximal tibia was prepared with pulsatil e lavage. The size 5 tibial tray was cemented in place and held firm while the cement hardened. Exc ess cement was removed. A bone plug was placed in the distal femur. A second batch of cement was mi xed. The distal femoral and patellar surfaces were prepared with pulsatile lavage. The size 5 femor al Oxinium component was impacted in place. Excess cement was removed and the knee extended with the 9 mm insert. While the cement cured, the 32 mm patellar button was cemented into place and held in place while the cement cured. Excess cement was removed. Again the wound was copiously irrigated an d a trial reduction using a 9 mm insert resulted in full extension and flexion with excellent varus a nd valgus stability through a full range of motion and the knee was well balanced. Patellar tracking was normal. After further irrigation, the final polyethylene 9 mm implant was impacted into place a nd again excellent range of motion and stability were confirmed. The tourniquet was deflated after 1 hour and 24 minutes tourniquet time. Hemostasis was obtained using electrocautery. A 1/8 inch drai n was left in place intra-articularly. The medial arthrotomy was closed using interrupted #2 FiberWi re and #1 Vicryl sutures. The subcutaneous closure was performed using interrupted 2-0 Vicryl suture s and skin closed using stainless odin. 30 mL of a cocktail comprised of ropivacaine, morphine an d ketorolac was injected. Sterile dressings were applied followed by an Chon wrap. There were no com plications, the patient tolerated the procedure well and returned to the recovery room in [facility]. /[id number]/MODL
[2018-08-09] MEDS ORDERED: WARFARIN SODIUM 5 MG TAB PO SCH (18:00)
--- NOTE | 2018-08-09 19:04 | GCON ---
DATE OF CONSULTATION: 08/09/2018 REFERRING PHYSICIAN: Nikolay Adams MD REASON FOR CONSULTATION: I was asked by Dr. Adams to see the patient in regard to his medical problems, including coronary artery disease. HISTORY OF PRESENT ILLNESS: This is a 62-year-old man who is now status post left TKA by Dr. Adams today. Per report, the surgery was uneventful. Notably , he has a history of coronary artery disease. He has had 3 MIs in the past. The first one was in 1999. He received a PCI at that time. This was precipitated by heavy chest pain. He had a subsequent one shortly thereafter, which required a 4-vessel CABG in 2000. He reports a third episode where he underwent a coronary angiogram, but no stents were placed. This was a few years after his CABG. He does not normally get any chest pain at all or with exertion. He has shortness of breath, which has been unchanged for years. This is improved with using his inhaler. He drinks alcohol but says he mostly drinks on the weekends, only drinks 1-2 drinks during the week. He was admitted here in 2017 and had no withdrawal at the time. PAST MEDICAL/SURGICAL HISTORY: 1. Coronary artery disease, status post CABG and PCI. 2. Hypertension. 3. Hyperlipidemia. 4. COPD. 5. CVA. 6. Three hip surgeries with 2 hip replacements. 7. Ankle fracture, status post ORIF. MEDICATIONS: Please see medication reconciliation. ALLERGIES: Acetaminophen. FAMILY HISTORY: His mother had diabetes, as well as heart disease. SOCIAL HISTORY: He drinks alcohol; he says he drinks 5-6 beers on the weekends but very little during the week. He is currently smoking a half pack a day. He has cut down from a pack and a half. REVIEW OF SYSTEMS: A 10-point review of systems is conducted and is negative, except per HPI. PHYSICAL EXAM: VITAL SIGNS: Blood pressure 139/87, heart rate 60, respiration rate 18, saturating 92% on room air. Temperature 36.2. GENERAL: The patient is a pleasant man who is resting comfortably, in no acute distress. HEENT: Normocephalic, atraumatic. CARDIOVASCULAR: Regular rate and rhythm. No murmurs, rubs, or gallops. No lower extremity edema. PULMONARY: Exam shows him to be breathing comfortably. Lungs are clear to auscultation bilaterally. ABDOMEN: Soft, nontender, nondistended. SKIN: Exam shows no rash. : Exam shows a Vides. NEUROLOGIC: Exam shows him to be alert and oriented x3. Moving all extremities. EXTREMITIES: Exam shows his left extremity to be wrapped in an Chon bandage. He has a drain in place with some bloody output. He has motor and sensation in his left foot. PSYCHIATRIC: Exam shows a normal mood and affect. LABS: His old labs were reviewed from about a month ago. They showed a slightly elevated hemoglobin at 18.4. His kidney function was normal at 0.8. DATA: 1. I discussed this with Manjula Coyne. 2. I reviewed his postoperative x-ray. This showed good alignment, status post left knee arthroplasty. 3. I reviewed his chart, including his previous admission in 2017 for an ankle fracture. IMPRESSION/PLAN: 1. Coronary artery disease: This does not appear active at this point and there is no evidence of ACS. I recommend holding his aspirin while he is on warfarin, which will be started for DVT prophylaxis. He should continue his beta sherlyn as possible perioperatively. Please alert Hospital Medicine immediately if he has any concerning cardiac symptoms. 2. Chronic obstructive pulmonary disease: He is currently on room air. He may use his albuterol inhaler as needed. 3. Alcohol use: It sounds as though he is more of a binge drinker than a daily drinker. He had no withdrawal on his last hospitalization. We will monitor but not place him on CIWA for now. 4. Tobacco use: Cessation was counseled. 5. Hypertension: Will continue his irbesartan, as well as metoprolol for now. 6. Hyperlipidemia: I believe that he is currently on pravastatin. Thank you for involving Hospital Medicine in the care of the patient. We will continue to follow with you. /[id number]/MODL MTDD
[2018-08-09] MEDS: FAMOTIDINE 20 MG TAB PO SCH (20:35)
[2018-08-09] MEDS: CYCLOBENZAPRINE 10 MG TAB PO PRN (20:35)
[2018-08-09] MEDS: SENNOSIDES/DOCUSATE SODIUM TAB PO SCH (20:36)
[2018-08-09] MEDS ORDERED: PRAVASTATIN SODIUM 20 MG TAB PO SCH (21:00)
[2018-08-09] MEDS: ceFAZolin 2 GM/DEXTROSE 100 ML IV SCH (21:45)
[2018-08-09] MEDS: ALBUTEROL 60 PUFFS/8 GM MDI IH PRN (22:37)
[2018-08-10] MEDS: CYCLOBENZAPRINE 10 MG TAB PO PRN ×2 (04:35→13:42)
[2018-08-10] MEDS: ceFAZolin 2 GM/DEXTROSE 100 ML IV SCH (05:01)
[2018-08-10 05:28] LABS: INR 1.16 (0.83-1.16)
--- NOTE | 2018-08-10 08:04 | SOAPPROG ---
SOAP Progress Note Assessment/Plan: Assessment/Plan: Left knee osteoarthritis S/P Left total knee arthroplasty with Dr. Adams, POD#1 today. -Continue PT/OT -Pain management, encourage oral pain meds-Dilaudid added to pts. orders. -Continue Ice/Polar Care ice machine -Continue SCD's for mechanical VTE prophylaxis -Continue Devin hose on right lower leg for mechanical prophylaxis -Pharmacy to dose warfarin for VTE chemoprophylaxis -WBAT LLE -Continue Cefazolin 2 gm every 8 hours, 24 hours total. -Appreciate Hospitalist consult for pts. co-existing conditions-significant CAD with h/o CABG in 2000, coronary stents last placed in 2002, h/o 3 PA's in the past, none recently. Also ongoing HTN, hyperlipidemia. Subjective: Pt. states that his pain is a 4/10 at rest, increased with movement , but is not concerned about this level of pain. Is looking forward to working with PT and hoping to be discharged back home as soon as possible. He has had no RODRIGUES, CP, SOB, Fevers, N/V, calf pain. Describes some tingling of the left toes when he is ambulating. This subsides when he lays back down. Objective: Pt. alert, resting comfortably in bed, in NAD. Breathing unlabored. Distally, calves are soft and NTTP, sensation intact to light touch to all toes/entire feet, moves all toes and ankles well with no difficulty. Dressings are intact over the pts. incision, no drainage. Skin around dressing without redness or swelling. 08/09/18 16:11 08/10/18 07:55 Objective: Vital Signs Temp Pulse Resp BP Pulse Ox 36.9 C 76 16 109/75 90 L 08/10/18 04:00 08/10/18 04:00 08/10/18 04:00 08/10/18 04:00 08/10/18 04:00 Laboratory Results 08/10/18 04:23 08/09/18 08/10/18 08/11/18 05:59 05:59 05:59 Intake Total 1920 Output Total 1520 Balance 400 PT 15.0 SEC (12.0-15.0) 08/10/18 04:23 INR 1.16 (0.83-1.16) 08/10/18 04:23 ICD10 Worksheet Patient Problems: Problems Problem Status Onset Fracture dislocation of ankle Acute
[2018-08-10] MEDS: HYDROmorphONE/DILAUDID 2 MG TAB PO PRN ×2 (08:05→12:08)
[2018-08-10] MEDS: SENNOSIDES/DOCUSATE SODIUM TAB PO SCH (08:05)
[2018-08-10] MEDS: FAMOTIDINE 20 MG TAB PO SCH (08:05)
[2018-08-10] MEDS ORDERED: METOPROLOL SUCCINATE XR 25 MG TAB PO SCH ×2 (09:00→09:15)
[2018-08-10] MEDS ORDERED: IRBESARTAN 150 MG TAB PO SCH ×2 (09:00→09:15)
[2018-08-10] MEDS ORDERED: PRAVASTATIN SODIUM 10 MG TAB PO SCH (09:00)
[2018-08-10] MEDS: ALBUTEROL 60 PUFFS/8 GM MDI IH PRN (09:26)
[2018-08-10 12:04] VITALS: BP 107/70
--- NOTE | 2018-08-10 15:14 | ASMTLACE ---
LACE Length of stay for Answers: 2 days current admission Acuity / Level of Answers: No Care: Did the patient have an inpatient admission? Comorbidities - select Answers: Chronic pulmonary disease all that apply Coronary Artery Disease Opioid dependence / Chronic pain Previous myocardial infarction Other Notes: HTN # of Emergency department Answers: 1-2 visits in the last 6 months Score: 13 Date Signed: 08/10/2018 03:13 PM Electronically Signed By:CANDICE Martinez
--- NOTE | 2018-08-10 15:15 | ASMTCMCOM ---
CM Note CM Note Notes: Pt s/p L TKA. PT rec HHC, pt amenable. Pt medically stable for d/c with [facility] PT. Order to be input by SAMINA Coyne, obtained by [facility] Date Signed: 08/10/2018 03:14 PM Electronically Signed By:CANDICE Martinez
--- NOTE | 2018-08-10 15:31 | PDIAF ---
- Diagnosis Diagnosis: Left Total Knee Arthroplasty Code Status: Full Code - Medication Management Discharge Medications: Medications to Continue on Transfer Albuterol [Ventolin Hfa Inhaler] 2 puffs IH Q4H PRN 05/15/17 [Last Taken ] Aspirin [Aspirin 325 mg (*)] 325 mg PO HS 05/15/17 [Last Taken 08/02/18] Irbesartan [Avapro 150 mg (*)] 150 mg PO DAILY 05/15/17 [Last Taken 08/08/18] Metoprolol Succinate Xr [Toprol Xl 50 mg (*)] 25 mg PO DAILY 05/15/17 [Last Taken 08/09/18] Nitroglycerin [Nitrostat 0.4 mg (*)] 0.4 mg SL Q5M PRN 05/15/17 [Last Taken Unknown] Pravastatin Sodium 20 mg PO HS 08/09/18 [Last Taken Unknown] Cyclobenzaprine [Flexeril 10 MG (*)] 1 tab PO Q8 PRN MDD 3 08/10/18 [Last Taken 08/10/18] Cyclobenzaprine [Flexeril 10 MG (*)] 10 mg PO Q8HRS PRN #20 tab 08/10/18 [Last Taken Unknown] HYDROmorphone HCL [Dilaudid 2 mg (*)] 2 - 4 mg PO Q4HRS PRN tab 08/10/18 [Last Taken Unknown] Warfarin Sodium [Coumadin 5MG (*)] 5 mg PO DAILY16 tab 08/10/18 [Last Taken Unknown] Discharge Medications: Refer to the Discharge Home Medication list for PRN reason. - Orders Services needed: Home Jail Care Face to Face: I certify that this patient was under my care and that I had the required [id number] encounter meeting the encounter requirements on the discharge day. My findings support the fact that the patient is homebound as defined in Home Care Face to Face Continued: CMS Chapter 7 Medicare Benefits Manual 30.1.1 , The condition of the patient is such that there exists a normal inability to leave home and consequently, leaving home would require a considerable and taxing effort. Isolation Type: None Diet Recommendation: no restrictions on diet Diet Texture: Regular Texture Diet Vides: Not applicable Devin Stockings Discontinue Date: Non-operative leg only, mariana wrap on left leg Wound Care Instructions: Please change dressing and check incision on POD # 3, sooner if needed for soaked, dirty dressing. Sutures/Kendall Site: Pt. will have his kendall removed at his post-op visit with Dr. Adams Activity/Weight Bearing Restrictions: Weight bearing as tolerated with assistive device prn. Additional Instructions: Weight bearing as tolerated with assistive device (walker or cane). Continue Home Physical Therapy Follow up with Dr. Adams at your previously scheduled follow-up appointment in 10-14 days. Call our office at [phone] for any questions or concerns. Call immediately for any redness or warmth around your incision or for fever greater than 100.4 Please stop your aspirin until finished taking your warfarin, in 3 weeks. You will need to have your blood drawn at an outpatient lab to check your INR level every Wednesday and for 3 weeks, starting tomorrow. You may use your Dilaudid for more severe pain-1-2 pills every 4-6 hours. You may also use your Flexeril every 8 hours as needed for muscles spasms. - Labs/Radiology PT/INR Date: 08/11/18 (every and Wednesday until finished with his Warfarin Rx) - Follow Up Care Current Providers and Referrals: Hyun Adams MD [Medical Doctor] - Fred Rogers MD [Primary Care Provider] -
--- NOTE | 2018-08-11 10:36 | ASDISCHSUM ---
Discharge Information Plan Status:Home with Home Health Medically Cleared to Leave: Discharge Date:08/10/2018 03:16 PM CM D/C Disposition: ADT D/C Disposition:Home, Routine, Self-Care Projected Discharge Date:08/10/2018 11:00 AM Transportation at D/C: Discharge Delay Reason: Follow-Up Date:08/10/2018 11:00 AM Discharge Slot: Final Diagnosis: Placement Information Referral Type:*Home Health Care Services Referral ID:[id number] Provider Name:[facility] Address 1[address] Address 2: City:[place] Selection Factors: State:[place] Patient Contact Information Contact Name:MAJOR Relationship:Other Address: Work Phone: City:[place] Alternate Phone: State/Zip Code:[place] Email: Financial Information Financial Class:Medicare Advantage Plans Primary Plan Desc:[facility] MD On-Line Primary Plan Number:[id number] Secondary Plan Desc: Secondary Plan Number: Assessment Information LACE LACE Length of stay for Answers: 2 days current admission Acuity / Level of Answers: No Care: Did the patient have an inpatient admission? Comorbidities - select Answers: Chronic pulmonary disease all that apply Coronary Artery Disease Opioid dependence / Chronic pain Previous myocardial infarction Other Notes: HTN # of Emergency department Answers: 1-2 visits in the last 6 months Score: 13 Date Signed: 08/10/2018 03:13 PM Electronically Signed By:CANDICE Martinez [facility] CM Progress Note CM Note CM Note Notes: Pt s/p L TKA. PT rec HHC, pt amenable. Pt medically stable for d/c with [facility] PT. Order to be input by SAMINA Coyne, obtained by [facility] via [employer]. Date Signed: 08/10/2018 03:14 PM Electronically Signed By:CANDICE Martinez Intervention Information
== END 2018-08-10 15:16 | disposition home or self-care (01) ==
LOC: FSGY 11:09 → EDSTATUS 13:00 → F3N 15:57
PROVIDERS: ADMIT Orthopaedic Surgery Sports Medicine; ATTEND Orthopaedic Surgery Sports Medicine
PROC: 0SRD0J9 Replacement of Left Knee Joint with Synthetic Substitute, Cemented, Open Approach (ICD-10-PCS; principal; 2018-08-09 13:00)
DX: M17.12 Unilateral primary osteoarthritis, left knee (principal); I25.10 Atherosclerotic heart disease of native coronary artery without angina pectoris; I10 Essential (primary) hypertension; E78.5 Hyperlipidemia, unspecified; F17.210 Nicotine dependence, cigarettes, uncomplicated; J44.9 Chronic obstructive pulmonary disease, unspecified; Z95.1 Presence of aortocoronary bypass graft; Z95.5 Presence of coronary angioplasty implant and graft; Z23 Encounter for immunization
CPT/HCPCS: 27447; 73560; 88311; 90686; 97116; 97161; 97165; C1713; C1776; G0008; G0378; G8978; G8979; G8980; G8987; G8988; J0171; J0690; J1100; J1885; J2001; J2250; J2270; J2704; J2795